=== PATIENT | female | born 1975 | race Caucasian/White ===

== ENCOUNTER → 2017-04-12 | Outpatient (CLI) | payer BC ==
[~2017-04-12] MED LIST: TOPROL XL25 MG PO
== END ==
LOC: MC.RAD 09:00
DX: Z12.31 Encounter for screening mammogram for malignant neoplasm of breast (principal)

== ENCOUNTER → 2019-03-21 | Outpatient (CLI) | payer BC | LOC: COL.RAD 14:00 | DX: E06.3 Autoimmune thyroiditis (principal); Z82.62 Family history of osteoporosis ==